=== PATIENT | male | born 1950 | race African-American/Black ===

== ENCOUNTER 2024-07-14 00:20 | Emergency (ER) | payer BC, MEDICAID ==
[~2024-07-14] VITALS: Ht 165.1 cm; Wt 75.0 kg
[2024-07-14 01:17] VITALS: O2SAT 98
[2024-07-14] MEDS ORDERED: AMLO5TAB88 MT (02:05)
[2024-07-14 02:26] VITALS: BP 133/65; PULSE 75; RESP 16; TEMP 36.9; O2SAT 97
== END 2024-07-14 02:26 | disposition home or self-care (01) ==
LOC: ER 00:20
DX: Z76.0 Encounter for issue of repeat prescription (principal); I10 Essential (primary) hypertension; D64.9 Anemia, unspecified; Z98.890 Other specified postprocedural states
CPT/HCPCS: 99283